=== PATIENT | female | born 1940 | race Caucasian/White ===

== ENCOUNTER 2024-10-04 14:15 | Emergency (ER) | payer MEDICARE, SELFPAY ==
[2024-10-04 14:17] VITALS: BMI 30.9
[2024-10-04 14:23] VITALS: BP 164/67; PULSE 63; RESP 18; TEMP 37.5; O2SAT 97
--- NOTE | 2024-10-04 14:30 | XR_ITS ---
Examination: Foot, right, 3 views Technique: AP, oblique, lateral views foot, 3 views Date and time of exam: October 04, 2024 1445 hours INDICATIONS: Nonhealing ulcer first toe beginning 3 3 weeks ago and nonhealing ulcer third digit beginning 3 days ago FINDINGS: Soft tissue swelling involving the first digit Cortical bone destruction at the base of the distal phalanx first digit No foreign body IMPRESSION: Early osteomyelitis distal phalanx first digit, consider MRI foot without contrast follow-up
--- NOTE | 2024-10-04 14:30 | XR_ITS ---
Examination: CT brain head without contrast. 2-D sagittal coronal reconstructions Date and time of exam:October 04, 2024 1537 hours INDICATIONS: Generalized head pain today CTDI: vol (mGy):48.2 DLP: (mGycm):932 Technique: Multiple CT axial sections of the brain have been obtained, 5 mm slice thickness. Contrast has not been administered. 2-D sagittal, coronal reconstructions have been obtained Low dose protocols were performed. One or more of the following dose reduction techniques were used; automated exposure control, adjustment of the mA and/or KV according to patient size, use of iterative reconstruction technique. Findings: No significant ventricular enlargement. Intra-axial or extra-axial hemorrhage density is not seen. No mass effect or midline shift Basal cisterns are not remarkable. Fourth ventricle is midline. Cranial vault intact. Impression: Negative for acute hemorrhage, mass effect or midline shift Chronic ethmoid frontal and sphenoid sinusitis
--- NOTE | 2024-10-04 15:00 | EDNOTE_ITS ---
<Statement entered by Laney Martinez MD - 10/15/24 01:02> As co-signing physician, I was present and available for consult prn. I concur with the plan and care as documented by the midlevel provider. ED Weakness RME/HPI General Chief complaint: Weakness Stated complaint: LEGS TINGLING WITH RIGHT TOE INFECTION, WEAKNESS Time Seen by Provider: 10/04/24 14:43 Arrival date/time: 10/04/24 14:15 RME / HPI RME / HPI Narrative: 84-year-old female patient with significant history of chronic foot infection, hypertension, came in with family for evaluation regarding wound check right great to fourth toe. Currently seen by follow up clerk, and was advised to restart on antibiotic since yesterday. Patient also complained of bilateral lower leg tingling sensation. And generalized weakness denies any fever denies any other complaints patient is worried that her infection is getting worse. Related Data Home Medications ?Medication ?Instructions ?Recorded ?Confirmed alendronate 70 mg effervescent 1 tab PO QWEEK 07/25/18 07/25/18 tablet diclofenac sodium 75 mg 1 tab PO BID PRN Pain 07/25/18 tablet,delayed release losartan 100 1 tab PO QDAY 07/25/1807/25 mg-hydrochlorothiazide 12.5 mg tablet pravastatin 40 mg tablet 1 tab PO HS 07/25/18 9 Previous Rx's ?Medication ?Instructions ?Recorded hydrocodone 5 mg-acetaminophen 325 1 tab PO Q6H PRN pa in #30 tabs 07/27/18 mg tablet ([place]) Allergies Allergy/AdvReac Type Severity Reaction Status Date / Time No Known Allergies Allergy Verified 10/04/24 14:19 Review of Systems Review of Systems Narrative Review of Systems: Review of system reviewed and within normal limits except mentioned in HPI ED Exam Narrative Physical exam: VITAL SIGNS: Reviewed. GENERAL APPEARANCE: Alert and interactive, follows commands, no acute distress, HEAD AND FACE: Non-traumatic. ENT: PERRL, pink conjunctivitis, eyelid no trauma, Mucous membrane moist. NECK: Supple, nontender, no nuchal rigidity. CHEST: No tenderness, no crepitus, no paradoxical movement, no retractions. LUNGS: Clear, well ventilated, symmetric, no rales, no wheezing, no ronchi, no stridor, good breath sounds bilaterally. HEART: Regular rate, regular rhythm, no murmur, no gallops. ABDOMEN: Soft, positive bowel sounds, nondistended, no guarding, nontender, no rebound, no masses, RECTAL: Deferred. GENITAL: Deferred. NEUROLOGICAL: Gross motor function intact sensory function intact, Appropriate for age. MUSCULOSKELETAL: low back nontender, full range of motion. EXTREMITIES:+ Chronic ulcer right great toe and 4th toe with good granulation tissue no redness no drainage noted, nontender, full range of motion. +2 pu lsating dorsalis pedis posterior tibialis pulses on the right lower extremity SKIN: Color pink, dry, no rash, no lacerations, no abrasions, no contusions. LYMPHATICS: Deferred. Course Quality Measures none Orders Category Date Time Status CT head/brain wo con Stat Exams 10/04/24 14:30 Completed XR foot comp RT min 3V Stat Exams 10/04/24 14:30 Completed A1C [Glycohemoglobin w (eAG)] Stat Lab 10/04/24 14:52 Completed Blood Culture (Lab) Stat Lab 10/04/24 14:52 Received CBC Stat Lab 10/04/24 14:52 Completed CRP [C-Reactive Protein] Stat Lab 10/04/24 14:52 Completed Comprehensive Metabolic Panel Stat Lab 10/04/24 14:52 Completed ESR [Sed Rate (ESR)] Stat Lab 10/04/24 14:52 Completed Lactate (Lactic Acid) Stat Lab 10/04/24 14:52 Completed Procalcitonin Stat Lab 10/04/24 14:52 Completed Vital Signs Vital signs: Vital Signs Temperature 99.5 F 10/04/24 14:23 Pulse Rate 63 10/04/24 14:23 Respiratory Rate 18 10/04/24 14:23 Blood Pressure 164/67 H 10/04/24 14:23 Pulse Oximetry (%) 97 10/04/24 14:23 Oxygen Delivery Method Room Air 10/04/24 14:23 Weakness MDM Narrative MDM Narrative:: 84-year-old female patient with significant history of chronic foot infection, hypertension, came in with family for evaluation regarding wound check right great to fourth toe. Currently seen by follow up clerk, and was advised to restart on antibiotic since yesterday. Patient also complained of bilateral lower leg tingling sensation. And generalized weakness denies any fever denies any other complaints patient is worried that her infection is getting worse. Patient foot, it showed good granulation tissue, there is no angry looking active infection noted CT scan of the head came back unremarkable. Patient's workup CBC showed no leukocytosis. X-ray of the foot showed early osteomyelitis proximal phalanx of great toe otherwise unremarkable. Results discussed with the patient. Patient was advised to continue taking the antibiotic that was prescribed by follow up clerk. Patient was also advised to show the results of the x-ray to the follow up clerk. Patient appears nontoxic and hemodynamically stable .Decision to discharge the patient. The patient/family was given an opportunity to ask questions and understood their discharge instructions. Discharge instructions specifically included follow up provider and time frame, current and/or new medications and possible side effects, indications for sooner follow up or return to the emergency department, and the expected course of current diagnosis. Patient reports feeling better as well and giving evidence of significant clinical improvement, I believe patient is now a candidate for discharge. Patient data External records reviewed:: None Clinical information provided by:: patient Social determinants that could affect healthcare access:: none Patient has the following chronic illnesses:: Hypertension How is presenting disease/condition affected by chronic disease/condition?: uneffected by Evaluation data The following diagnostics were reviewed and interpreted by me:: lab results and radiology exam(s) Lab and/or radiology exams considered but not ordered:: None Interpretation Summary: See results MDM Medications / Prescriptions Medications or Prescriptions considered but not ordered:: None Medication administrations:: None Consultations Consultation(s) initiated? (list below): No Diagnosis Weakness Differential Diagnosis: other (Chronic foot infection, acute osteomyelitis grade toe, generalized weakness) Most likely diagnosis given after review of the tests above:: toe infection, osteomyelitis grade 2 Admission Indicated Admission indicated?: not indicated Explain why admission is indicated or not indicated:: Stable Admission Request Was there a request for admission?: No Disposition Plan Disposition Plan: Discharge Discharge Attestation Discharge Attestation: The patient and all family members were given an opportunity to ask questions and understood the discharge instructions. Discharge instructions specifically effects, indications for sooner follow up or return to the emergency department, and the expected course of current diagnosis. Patient condition: Stable Discharge Plan Plan Patient Disposition: HOME (Self Care) Discharge Disposition comment: Stable Prescriptions/Referrals Prescriptions/Med Rec: No Action pravastatin 40 mg Tablet 1 tab PO HS diclofenac sodium 75 mg Tablet,Delayed Release (Dr/Ec) 1 tab PO BID PRN (Reason: Pain) losartan-hydrochlorothiazide 100-12.5 mg Tablet 1 tab PO QDAY alendronate 70 mg Tablet, Effervescent 1 tab PO QWEEK hydrocodone-acetaminophen [[place]] 5-325 mg tablet 1 tab PO Q6H MDD 6 PRN (Reason: pain) Qty: 30 0RF Referrals: Keri Shelton MD [Primary Care Provider] - In 1 week Problem List Clinical Impression: Infection of toe, Osteomyelitis of great toe Patient/Caregiver Discharge Instructions Discharge Activity: activity as tolerated Education Materials: Osteomyelitis Dc Additional Instructions: Thank you for the opportunity for serving you today. You are stable for discharged . You are advised to: Follow-up with your podiatry in 1 to 2 days Return to ED for worsening of symptoms Increase oral fluids Continue taking the antibiotic that youR podiatry started you yesterday Print Language: Telugu Stand Alone Forms: La Award Info., Patient Portal Info Letter CARY/RADHA Supervising Physician CARY/RADHA Supervising Physician: MD Michelle
[2024-10-04 15:02] LABS: Lactate (Lactic Acid) 1.2 mMol/L (0.4-2.0)
[2024-10-04 15:12] LABS: Basophils % (Auto) 1 % (0-2.5); Eosinophils % (Auto) 0 % (0-10); Hematocrit 29.2 % (36.0-46.0); Immature Granulocytes % (Auto) 1 % (0-0); Immature Granulocytes Auto 0.06 Thou/mm3 (0.00-0.00); Lymphocytes # (Auto) 1.6 Thou/mm3 (1.0-4.8); Lymphocytes % (Auto) 24 % (10-50); Mean Corpuscular HGB Conc 34.2 g/dl (31.0-37.0); Mean Corpuscular Hemoglobin 30.6 pg (25.0-35.0); Mean Corpuscular Volume 89 fL (80-100); Monocytes # (Auto) 0.5 Thou/mm3 (0.0-0.8); Monocytes % (Auto) 7 % (0-12); Neutrophils # (Auto) 4.4 Thou/mm3 (1.8-7.7); Neutrophils % (Auto) 67 % (37-80); Nucleated Red Blood Cell % 0 /100 WBC (0); Platelet Count 219 Thou/mm3 (140-440); RDW Standard Deviation 43.3 fL (36.4-46.3); Red Blood Count 3.27 Miln/mm3 (4.00-5.20); White Blood Count 6.6 Thou/mm3 (3.6-11.0)
[2024-10-04 15:41] LABS: Alanine Aminotransferase 27 U/L (10-49); Albumin, Serum 4.1 gm/dL (3.4-4.8); Albumin/Globulin Ratio 1.6 (1.2-2.2); Alkaline Phosphatase 33 U/L (46-116); Anion Gap 12 (7-16); Aspartate Amino Transferase 23 U/L (0-34); BUN/Creatinine Ratio 28 Ratio (12-20); Bilirubin,Total 0.2 mg/dL (0.3-1.2); Blood Urea Nitrogen 33 mg/dL (9-23); C-Reactive Protein < 0.5 mg/dL (0.0-0.9); Calcium 9.2 mg/dL (8.3-10.6); Calcium (Corrected) 9.2 mg/dL (8.5-10.1); Carbon Dioxide 19.1 mMol/L (20.0-31.0); Chloride 105 mMol/L (98-107); Creatinine (Component) 1.2 mg/dL (0.6-1.3); Estimated Creatinine Clearance 36.7 mL/min (>60); Globulin 2.5 gm/dL (2.3-3.5); Glucose 99 mg/dL (74-106); Osmolality,Calculated 279 (275-295); Potassium 4.5 mMol/L (3.4-5.1); Procalcitonin 0.05 ng/ml (0.0-0.49); Sodium 136 mMol/L (136-145); Total Protein 6.6 gm/dL (5.7-8.2); eGFR 45 See Note
[2024-10-04 15:42] LABS: Sed Rate (ESR) 30 mm/hr (0-30)
[2024-10-04 15:55] LABS: Glucose Estimated Average 126 mg/dL (80-131)
[2024-10-04 16:27] VITALS: BP 164/57; PULSE 53; RESP 17; TEMP 36.8; O2SAT 96
== END 2024-10-04 17:20 | disposition home or self-care (01) ==
PROVIDERS: Nurse Practitioner Primary Care; Emergency Provider Emergency Medicine; PCP Internal Medicine
DX: M86.8X7 Other osteomyelitis, ankle and foot (principal); L08.9 Local infection of the skin and subcutaneous tissue, unspecified; R51.9 Headache, unspecified
CPT/HCPCS: 36415; 70450; 73630; 80053; 83036; 83605; 84145; 85025; 85652; 86140; 87040; 99284

== ENCOUNTER → 2024-10-22 | Outpatient (CLI) | payer MEDICARE, SELFPAY | END | disposition home or self-care (01) | PROVIDERS: PCP Internal Medicine; Referring Provider Internal Medicine; Visit Provider Student in an Organized Health Care Education/Training Program | DX: E11.621 Type 2 diabetes mellitus with foot ulcer (principal); L97.511 Non-pressure chronic ulcer of other part of right foot limited to breakdown of skin; I10 Essential (primary) hypertension; M06.9 Rheumatoid arthritis, unspecified | CPT/HCPCS: 97597; 99213; A9270; G0463 ==

== ENCOUNTER → 2024-10-29 | Outpatient (CLI) | payer MEDICARE, SELFPAY | END | disposition home or self-care (01) | LOC: SWHD 12:49 | PROVIDERS: PCP Internal Medicine; Referring Provider Internal Medicine; Visit Provider Student in an Organized Health Care Education/Training Program | DX: E11.621 Type 2 diabetes mellitus with foot ulcer (principal); L97.511 Non-pressure chronic ulcer of other part of right foot limited to breakdown of skin; I10 Essential (primary) hypertension; M06.9 Rheumatoid arthritis, unspecified | CPT/HCPCS: 99214; G0463 ==

== ENCOUNTER → 2024-11-05 | Outpatient (CLI) | payer MEDICARE, SELFPAY | END | disposition home or self-care (01) | LOC: SWHD 13:19 | PROVIDERS: PCP Internal Medicine; Referring Provider Internal Medicine; Visit Provider Student in an Organized Health Care Education/Training Program | DX: E11.621 Type 2 diabetes mellitus with foot ulcer (principal); L97.511 Non-pressure chronic ulcer of other part of right foot limited to breakdown of skin; I10 Essential (primary) hypertension; M06.9 Rheumatoid arthritis, unspecified | CPT/HCPCS: 97597; A9270 ==

== ENCOUNTER → 2024-11-19 | Outpatient (CLI) | payer MEDICARE, SELFPAY | END | disposition home or self-care (01) | LOC: SWHD 13:30 | PROVIDERS: PCP Internal Medicine; Referring Provider Internal Medicine; Visit Provider Student in an Organized Health Care Education/Training Program | DX: E11.621 Type 2 diabetes mellitus with foot ulcer (principal); L97.511 Non-pressure chronic ulcer of other part of right foot limited to breakdown of skin; M86.8X7 Other osteomyelitis, ankle and foot; I10 Essential (primary) hypertension; M06.9 Rheumatoid arthritis, unspecified | CPT/HCPCS: A9270 ==

== ENCOUNTER → 2024-12-03 | Outpatient (CLI) | payer MEDICARE, SELFPAY | END | disposition home or self-care (01) | LOC: SWHD 13:50 | PROVIDERS: PCP Internal Medicine; Referring Provider Internal Medicine; Visit Provider Student in an Organized Health Care Education/Training Program | DX: E11.621 Type 2 diabetes mellitus with foot ulcer (principal); L97.511 Non-pressure chronic ulcer of other part of right foot limited to breakdown of skin; M86.8X7 Other osteomyelitis, ankle and foot; I10 Essential (primary) hypertension; M06.9 Rheumatoid arthritis, unspecified | CPT/HCPCS: 99213; A9270; G0463 ==

== ENCOUNTER → 2024-12-17 | Outpatient (CLI) | payer MEDICARE, SELFPAY | END | disposition home or self-care (01) | LOC: SWHD 13:33 | PROVIDERS: PCP Internal Medicine; Referring Provider Internal Medicine; Visit Provider Student in an Organized Health Care Education/Training Program | DX: E11.621 Type 2 diabetes mellitus with foot ulcer (principal); L97.511 Non-pressure chronic ulcer of other part of right foot limited to breakdown of skin; M86.8X7 Other osteomyelitis, ankle and foot; I10 Essential (primary) hypertension; M06.9 Rheumatoid arthritis, unspecified | CPT/HCPCS: 97597 ==

== ENCOUNTER 2025-04-01 08:54 | Outpatient (AMB) | payer MEDICARE, SELFPAY ==
[2025-04-01 09:19] VITALS: BP 152/71; PULSE 68; RESP 18; TEMP 36.6; O2SAT 93; BMI 30.4
--- NOTE | 2025-04-01 09:19 | ORTHONT_ITS ---
Vital signs 04/01/25 09:19 Height 1.63 m Height Method Stated Weight 80.824 kg Weight Measurement Method Standing Scale BMI 30.4 BP 152/71 H Blood Pressure Source Automatic Cuff Blood Pressure Location Left Upper Arm Position Sitting Respiration 18 Pulse 68 Pulse Source Monitor Temp 97.8 F Temp Source Temporal Artery Scan Pulse Oximetry (%) 93 L Oxygen Delivery Method Room Air Med/Allergies Allergies & Medications Allergies No Known Allergies Allergy (Verified 04/01/25 09:19) Medication Reconciliation alendronate 70 mg effervescent tablet 1 tab PO QWEEK 07/25/18 [History Confirmed 04/01/25] diclofenac sodium 75 mg tablet,delayed release 1 tab PO BID PRN Pain 07/25/18 [History Confirmed 04/01/25] losartan 100 mg-hydrochlorothiazide 12.5 mg tablet 1 tab PO QDAY 07/25/18 [History Confirmed 04/01/25] pravastatin 40 mg tablet 1 tab PO HS 07/25/18 [History Confirmed 04/01/25] hydrocodone 5 mg-acetaminophen 325 mg tablet ([place]) 1 tab PO Q6H PRN pain #30 tabs 07/27/18 [Rx Confirmed 04/01/25] Exam Exam Patient is in no acute distress and is cooperative with the examination today. Breathing is nonlabored. In no respiratory distress. Bilateral extremities were evaluated and demonstrates sensation intact to light touch. Palpable pedal pulses are present. No significant edema is present. Bilateral hips were examined. The patient has no pain with log roll of the hips. Internal rotation to 30 degrees and external rotation to 30 degrees is painless. Negative FADIR. The left knee was examined. The left knee is in varus alignment. Range of motion from 0-115 degrees. Knee is stable to varus and valgus as well as AP translation with <5mm. Patient has a negative Mc[place]rays. There is no pain with patellofemoral compression and no crepitus noted. The knee is tender to palpation medially. The right knee was also examined. The right knee is in varus alignment. Range of motion from 0-120 degrees. Knee is stable to varus and valgus as well as AP translation with <5mm. Patient has a negative Mc[place]rays. There is no pain with patellofemoral compression and no crepitus noted. The knee is tender to palpation medially. Bilateral knee x-rays demonstrate complete joint space loss medially and varus deformity. Assessment and Plan Problem List (1) Degenerative arthritis of knee, bilateral: Status: Acute Plan: ASSESSMENT AND PLAN 1. Bilateral knee pain: Experiencing bilateral knee pain for the last 5 years, diagnosed as arthritis. X-rays show [id number] contact in both knees. She has had 3 cortisone injections, which did not provide long-term relief. Diclofenac helps a little bit. Given the severity of her symptoms and impact on quality of life, knee replacement surgery is recommended. The procedure involves resurfacing the surface of the bone with metal and plastic, takes about 40 to 45 minutes, and most patients go home the same day. Risks include infection, pain during the first 2 to 3 weeks post-surgery, and the need for physical therapy. Benefits include significant improvement in pain and walking ability. Postoperative care includes 2 weeks with a walker, 2 weeks with a cane, and then no assistive device. A weightbearing x-ray is recommended for surgical planning. Cardiac clearance will be obtained from Dr. Siegel before proceeding with surgery. If opting for surgery, the left knee will be addressed first, followed by the right knee after approximately 3 months. Physical therapy will be required post- surgery, initially at home and then outpatient therapy for 4 to 6 weeks. 2. Diabetes mellitus: Hemoglobin A1c is 6.0, indicating well-controlled diabetes. Continued monitoring of blood sugar levels is advised, especially if considering cortisone injections, which can raise blood sugar levels. Alternatives to cortisone injections include gel injections, though they may not be effective due to the lack of space in the knee joint. Advanced Care Planning Discussion Advance care planning discussed with:: patient Office Procedures GNS Level of Care Nursing/Assessment Patient Status: Initial/New Patient Nursing Assessment/Reassesment: Medication Reconciliation, Update PMH in EMR and Vital Signs Coordination of Care: Complex Care and Chronic Disease 1-5, Education Complex Pt/Fam, Consent,records obtained, informed consent, 1 Ins Authorization, Lab and Imaging orders, Results/Orders obtained and Staff clarify orders New Patient Charge New Patient Point Assignment: 1124 New Patient Point Charge: HAND BUFFING WHEEL FORMER Level 4 ([id number]) MA Intake Visit Data Collection New Patient or Established: New Patient (never been to [facility]) Reason for Visit:: BL KNEE ARTHRITIS Seen by Clinical Staff ONLY (RN/MA): No PCP or OBGYN visit in last 3 months: Yes Hx Now: No Do You Feel Safe at Home: Yes Authorities Contacted: N/A Questionairres Past Medical History Past Medical History Have you ever been diagnosed with any of the following: Neurological Problems Seizures: No Cardiology Problems Hypercholesterolemia: Yes Congestive Heart Failure: No Hypertension: Yes Varicose Veins: Yes Respiratory Problems Chronic Obstructive Pulmonary Disease (COPD): No Smoking: No Smoking Cessation Counseling: No Smoking Exposure: No Genital/Urinary Problems Renal Disease: No Musculoskeletal Problems Arthritis: Yes Head,Eye,Nose,Throat Problems Cataracts: Yes Endocrine Problems Diabetes Mellitus Type 1: No Diabetes Mellitus Type 2: No Other Problems Blood Transfusions: No Blood Transfusion Reaction: No Anesthesia Reactions: No Subjective Visit Visit for: new patient and knee Immunization / Flu Flu Vaccine in the Last 12 Months: Yes Flu Vaccine Exclusion Criteria: Already Received History of Present Illness Chief complaint: BILATERAL KNEE ARTHRITIS Date of injury / onset of symptoms: 5 YEARS HISTORY OF PRESENT ILLNESS IJossue, have obtained verbal consent from the patient, to be recorded during this encounter which may include, but not limited to, medical history, examination, treatment plans, and relevant health information.? Patient was informed that recording will be read and reviewed by myself before inclusion in the medical chart. The patient is an 85-year-old female who presents for evaluation of bilateral knee pain. She has been experiencing bilateral knee pain for the past 5 years, with a diagnosis of arthritis. The left knee is significantly more painful than the right. Her symptoms have been present for over 10 years and have a significant impact on her quality of life and happiness. She has undergone x-rays in a supine position and received 3 injections, which provided minimal relief. She has not participated in physical therapy. Diclofenac offers some relief. She is currently struggling to walk with the aid of a cane. She has been referred to Dr. Siegel and has an echocardiogram scheduled for tomorrow, followed by a [facility] on 04/08/2025. She also has a diabetic ulcer on her right foot, which was evaluated by a director of sports medicine yesterday and is reported to be healed. Her hemoglobin A1c level is 6.0, and she monitors her blood glucose levels in the morning. Personal History Occupation: RETIRED Pain Pain level (0-10): 5 Pain duration: ALL DAY Pain location: anterior Pain quality: sharp, dull and aching Pain timing: night, increases with activity and stairs Associated signs & symptoms: stiffness Ambulatory data Ambulatory device: cane Treatments Number of previous injections: 3 Improvement with previous injections: No Number of Physical Therapy sessions: 0 Improvement with PT: No Improvement with NSAIDS: no (DICLOFENAC) Review of Systems Review of Systems: All systems negative unless otherwise noted in HPI.
--- NOTE | 2025-04-01 09:37 | XR_ITS ---
EXAMINATION: Bilateral knees 2 views Right lateral knee left lateral knee 2 views Bilateral [place] single view TECHNIQUE: Bilateral AP knees standing single view Bilateral PA knees standing single view flexion Standing bilateral knee left lateral knee 2 views Bilateral [place] single view Date and time: April 01, 2025, 0945 hours INDICATIONS: Bilateral knee pain several years. FINDINGS: Severe osteopenia Severe narrowing [id number] medial joint spaces bilaterally Bilateral advanced osteoarthritis lateral patellofemoral joints No fractures IMPRESSION: Advanced bilateral tricompartment osteoarthritis Severe bilateral narrowing medial joint spaces, [id number]
== END 2025-04-01 09:35 | disposition home or self-care (01) ==
LOC: HODSRG 08:54
PROVIDERS: PCP Internal Medicine; Referring Provider Internal Medicine; Supervising Provider Orthopaedic Surgery Adult Reconstructive Orthopaedic Surgery; Visit Provider Orthopaedic Surgery Adult Reconstructive Orthopaedic Surgery
DX: M17.0 Bilateral primary osteoarthritis of knee (principal); M25.562 Pain in left knee; M25.561 Pain in right knee; E11.9 Type 2 diabetes mellitus without complications; I10 Essential (primary) hypertension
CPT/HCPCS: 73564; 99204; G0463

== ENCOUNTER → 2025-04-25 | Outpatient (CLI) | payer MEDICARE, SELFPAY ==
[2025-04-25 11:52] LABS: INR 1.1 (0.9-1.3); Partial Thromboplastin Time 30.8 Seconds (22.0-36.0); Prothrombin Time 11.8 Seconds (9.0-12.2)
[2025-04-25 11:53] LABS: Glucose Estimated Average 120 mg/dL (80-131); Hemoglobin A1C 5.8 % Hgb (4.8-6.0)
[2025-04-25 12:01] LABS: Alanine Aminotransferase 25 U/L (10-49); Albumin, Serum 4.8 gm/dL (3.4-4.8); Albumin/Globulin Ratio 1.6 (1.2-2.2); Alkaline Phosphatase 36 U/L (46-116); Anion Gap 11 (7-16); Aspartate Amino Transferase 20 U/L (0-34); BUN/Creatinine Ratio 27 Ratio (12-20); Basophils # (Auto) 0.0 Thou/mm3 (0.0-0.2); Basophils % (Auto) 0 % (0-2.5); Bilirubin,Total 0.5 mg/dL (0.3-1.2); Blood Urea Nitrogen 27 mg/dL (9-23); Calcium 10.1 mg/dL (8.3-10.6); Calcium (Corrected) 10.1 mg/dL (8.5-10.1); Carbon Dioxide 25.5 mMol/L (20.0-31.0); Chloride 109 mMol/L (98-107); Creatinine (Component) 1.0 mg/dL (0.6-1.3); Eosinophils # (Auto) 0.3 Thou/mm3 (0.0-0.5); Eosinophils % (Auto) 4 % (0-10); Globulin 3.0 gm/dL (2.3-3.5); Glucose 109 mg/dL (74-106); Hematocrit 35.6 % (36.0-46.0); Hemoglobin 11.4 g/dL (12.0-16.0); Immature Granulocytes Auto 0.03 Thou/mm3 (0.00-0.00); Lymphocytes # (Auto) 2.0 Thou/mm3 (1.0-4.8); Lymphocytes % (Auto) 29 % (10-50); Mean Corpuscular HGB Conc 32.0 g/dl (31.0-37.0); Mean Corpuscular Hemoglobin 30.1 pg (25.0-35.0); Mean Corpuscular Volume 94 fL (80-100); Monocytes # (Auto) 0.4 Thou/mm3 (0.0-0.8); Monocytes % (Auto) 6 % (0-12); Neutrophils # (Auto) 4.0 Thou/mm3 (1.8-7.7); Neutrophils % (Auto) 60 % (37-80); Nucleated Red Blood Cell # 0.00 Thou/mm3 (0.00-0.00); Nucleated Red Blood Cell % 0 /100 WBC (0); Osmolality,Calculated 294 (275-295); Platelet Count 180 Thou/mm3 (140-440); Potassium 4.7 mMol/L (3.4-5.1); RDW Standard Deviation 44.1 fL (36.4-46.3); Red Blood Count 3.79 Miln/mm3 (4.00-5.20); Sodium 145 mMol/L (136-145); Total Protein 7.8 gm/dL (5.7-8.2); White Blood Count 6.7 Thou/mm3 (3.6-11.0); eGFR 56 See Note
== END | disposition home or self-care (01) ==
LOC: COPL 10:42
PROVIDERS: PCP Internal Medicine; Referring Provider Internal Medicine; Visit Provider Internal Medicine
DX: Z01.812 Encounter for preprocedural laboratory examination (principal); Z01.818 Encounter for other preprocedural examination
CPT/HCPCS: 36415; 80053; 83036; 85025; 85610; 85730